=== PATIENT | female | born 1950 | race Caucasian/White ===

== ENCOUNTER → 2022-08-21 | Outpatient (CLI) | payer MEDICARE, BC | END | disposition home or self-care (01) | LOC: LABWHC1 09:18 | PROVIDERS: ATTEND Internal Medicine Critical Care Medicine | DX: J45.909 Unspecified asthma, uncomplicated (principal) | CPT/HCPCS: 36415; 85008 ==

== ENCOUNTER → 2023-07-30 | Outpatient (CLI) | payer MEDICARE, BC ==
--- NOTE | 2023-08-02 15:24 | NM ---
EXAMINATION TYPE: NM thyroid image w uptake DATE OF EXAM: 07/31/2023 COMPARISON: NONE CLINICAL INDICATION: Female, 73 years old with history of E04.1 NONTOXIC SINGLE THYROID NODULE; TECHNIQUE: Thyroid iodine uptake is calculated and images performed after the oral administration of 306 uCi 1-123 Capsule. FINDINGS: There is normal distribution of activity throughout the gland the right lobe is slightly la rger than the left. The 4 hour iodine uptake is calculated at 4.3% (normal range 8-14%). The 24-hour iodine uptake is calculated at 10.5% (normal range 15-35%). IMPRESSION: Fairly uniform uptake of tracer within the thyroid gland though the right lobe is larger than the left. Uptake measurements are low. This may reflect hypothyroidism or subacute thyroiditis. Clinically correlate.
== END | disposition home or self-care (01) ==
LOC: RADNMMAIN 09:47
PROVIDERS: ATTEND Family Medicine
DX: E04.1 Nontoxic single thyroid nodule (principal)
CPT/HCPCS: 78014; A9516

== ENCOUNTER → 2023-11-06 | Outpatient (CLI) | payer MEDICARE, BC ==
--- NOTE | 2023-11-16 22:11 | P.PCN ---
Date of Procedure: 11/06/23 Operative Findings: Home sleep study report Date of service is 11/06/2023 History 73-year-old female patient with previous history of obstructive sleep apnea and AHI of 8 and the patient was being treated with a CPAP pressure of 8 cm of water. The patient underwent successful treatment and she would benefit from CPAP therapy. The patient has lost approximately 30 pounds since her original diagnosis. Based on that, it was thought it was reasonable to reevaluate the patient with a home sleep study to evaluate the presence and severity of sleep apnea. Home sleep study was ordered accordingly. Physical findings The patient has a weight of 161 pounds with a BMI of 29.2 Technical description The [employer] system was used to complete this home sleep study. This is a type III home sleep study. The total recording duration was 7 hours and 57 minutes. The study started at 10:17 PM and ended at 6:15 AM. There was a total of 7 hours and 31 minutes of flow monitoring and 7 hours and 40 minutes of oxygen saturation monitoring Results The respiratory evaluation showed a total of 4 obstructive apneas and 16 obstructive hypopneas. The resulting AHI was 2.7. Oxygenation analysis The baseline pulse ox was 96% while the patient was awake. Average pulse ox during sleep was 90%. Lowest pulse ox was 84%. The patient spent approximately 1 hours and 50 minutes of the sleep time at a pulse ox of 89% and below Cardiac summary The average heart rate was 69 with a minimum heart rate of 60 and a maximum heart rate of 101 Assessment History of obstructive sleep apnea, improved with weight loss. The patient has mild LORI with an AHI of 8 back in 2017. Patient was successfully treated with CPAP machine at a pressure of 8 cm of water. The patient lost considerable amount of weight and her current body mass index is down to 29.2. Nocturnal oxygen desaturation, mild Obesity with significant weight loss with a current body mass index of 29.2 Plan Based on the current sleep study, the patient has no significant obstructive sleep apnea. Noted the severity of her illness was mild at baseline back in 2017 and the patient's AHI is currently down to 2.7 after she lost considerable weight. Will give the patient the option of coming off the CPAP therapy for the time being as long as she remains clinically asymptomatic. We discussed the findings with the patient.
== END ==
LOC: 3 N SLEEP 16:46
PROVIDERS: ATTEND Internal Medicine Critical Care Medicine
DX: G47.33 Obstructive sleep apnea (adult) (pediatric) (principal); E66.9 Obesity, unspecified; G47.36 Sleep related hypoventilation in conditions classified elsewhere; Z68.29 Body mass index [BMI] 29.0-29.9, adult